=== PATIENT | male | born 1995 | race Caucasian/White ===

== ENCOUNTER 2018-11-01 22:28 | Emergency (ER) | payer MEDICAID, OTHER, SELFPAY ==
[~2018-11-01] VITALS: Ht 172.7 cm; Wt 95.7 kg
[2018-11-01 22:31] VITALS: BP 139/80
== END 2018-11-01 23:58 | disposition home or self-care (01) ==
LOC: ED 23:50
DX: M10.072 Idiopathic gout, left ankle and foot (principal)
CPT/HCPCS: 36415; 73630; 84550; 85025; 96372; 99284; J1885

== ENCOUNTER 2019-01-08 10:13 | Emergency (ER) | payer OTHER ==
[~2019-01-08] VITALS: Ht 175.3 cm; Wt 95.1 kg
[2019-01-08 10:15] VITALS: BP 129/89
[2019-01-08 10:58] LABS: RAPID INFLUENZA A Negative (Negative); RAPID INFLUENZA B Negative (Negative)
== END 2019-01-08 12:23 | disposition home or self-care (01) ==
LOC: ED 10:37
DX: B34.9 Viral infection, unspecified (principal)
CPT/HCPCS: 71046; 87400; 99284

== ENCOUNTER 2019-05-24 22:57 | Emergency (ER) | payer MEDICAID, OTHER ==
[~2019-05-24] VITALS: Ht 175.3 cm; Wt 97.8 kg
--- NOTE | 2019-05-24 23:11 | NUR ---
THIS IS A 23 YO M W/ C/O NAUSEA, RT AND LT LWR ABD PAIN, 1 EPISODE OF VOMITING LAST NIGHT, 1 EPISODE OF DIARRHEA THIS MORNING. DENIES PAIN W/ URINATION. RESP EVEN AND UNLABORED. IGLESIA. PT IS RESTING ON [facility] W/ MEDICAL STUDENT IN ROOM FOR EXAM. CALL LIGHT IN REACH.
[2019-05-24] MEDS ORDERED: DICYCLOMINE 20 MG TABLET ONE (23:52)
[2019-05-24] MEDS ORDERED: ACETAMINOPHEN 500 MG TABLET ONE (23:52)
[2019-05-24] MEDS ORDERED: ONDANSETRON ODT 4 MG ONE (23:52)
--- NOTE | 2019-05-24 23:55 | NUR ---
PT MEDICATED PER EMAR.
[2019-05-25] MEDS ORDERED: ACETAMINOPHEN 500 MG TABLET PO ONE
[2019-05-25] MEDS ORDERED: ONDANSETRON ODT 4 MG PO ONE
[2019-05-25] MEDS ORDERED: DICYCLOMINE 20 MG TABLET PO ONE
[2019-05-25 00:45] VITALS: BP 116/76
== END 2019-05-25 00:45 | disposition home or self-care (01) ==
LOC: ED 05-25 00:24
DX: H57.02 Anisocoria (principal); R11.2 Nausea with vomiting, unspecified; R10.30 Lower abdominal pain, unspecified
CPT/HCPCS: 70450; 99284; Q0162

== ENCOUNTER 2020-07-29 16:41 | Emergency (ER) | payer MEDICAID ==
[~2020-07-29] VITALS: Ht 172.7 cm; Wt 106.2 kg
[2020-07-29 16:48] VITALS: BP 146/95
== END 2020-07-29 19:05 | disposition home or self-care (01) ==
LOC: ED 19:01
DX: H61.23 Impacted cerumen, bilateral (principal)
CPT/HCPCS: 69209; 99281; 99282